=== PATIENT | female | born 1985 | race Two or more races ===

== ENCOUNTER 2017-05-07 06:09 | Day surgery (SDC) | payer BC ==
--- NOTE | 2017-05-04 13:36 | Short Stay Surgery H&P ---
History of Present Illness History of Present Illness Chief Complaint Desires permanent sterilization HPI Rabia Kirk is a 31 year old female admitted on 05/07/17 for desired permanent sterilization. She had her 1st baby at age 26 and since that time has desired sterilization. She has been counseled on the R/B/A to sterilization, including risk of regret, and alternatives such as LARC. Patient desires permanent contraception and was thus counseled on laparoscopic tubal occlusion vs salpingectomy. We discussed the benefits of salpingectomy including decreased risk of ovarian cancer, as well as decreased likelihood of failure. We discussed risks of surgery including risk of bleeding, infection, and damage to surrounding organs. The patient wishes to proceed and has given informed consent. PMH: Denies hx of HTN, asthma, DM, or VTE PSH: No prior surgeries Meds: None Allergies: NKDA OBHx: - x1 5y ago, MedAb in 2017 GYNHx: Denies hx of fibroids or AUB, +hx of cysts (resolved) SocHx: Non-smoker, drinks socially, exercises regularly FamHx: mother with HTN and arthritis, no other notable family hx Review of Systems Cardiovascular: Reports: no symptoms Respiratory: Reports: no symptoms Skeletal: Reports: no symptoms Gastrointestinal: Reports: no symptoms Genitourinary: Reports: no symptoms Neurologic: Reports: no symptoms Endocrine: Reports: no symptoms Hematologic: Reports: no symptoms Physical Exam Vital Signs P 100/60, HR 70, RR 20 Labs See scanned reports XRay Ultrasound performed in the office on 05/04 was within normal limits EKG N/A Skin: normal HENT: normal Heart: normal - RRR Lungs: normal - No increased work of breathing, respirations even and unlabored Abdomen: normal - Soft, NTND Extremities: normal - warm, well-perfused Genitourinary: normal Plan Plan of Care 31 year old desiring permanent sterilization. Plan is for laparoscopic bilateral salpingectomy. US performed in the office shows no abnormalities. Patient counseled on expectation post-op and will see me 1 week after surgery for post-op visit. Final Diagnosis: Attestation Are the patient's medical conditions optimized for surgery? Attestation Response: yes Alessia Villegas M.D. May 04, 2017 13:36
[2017-05-07] VITALS (11 sets, daily range): BP systolic 107–129; BP diastolic 67–78
[~2017-05-07] VITALS: Ht 165.1 cm; Wt 71.7 kg
[2017-05-07] MEDS ORDERED: NKM (06:46)
[2017-05-07] MEDS ORDERED: cefOXitin Sod 2 GM in D5W 110 ML IVPB ONE (07:00)
[2017-05-07] MEDS ORDERED: Ropivacaine 5mg/ml Vial 30ml INJ ONE (07:22)
[2017-05-07] MEDS ORDERED: LR 1000ml 1,000 ML IVLG SCH (07:28)
--- NOTE | 2017-05-07 07:28 | Anethesia Preoperative Eval ---
Anesthesia Pre-op PMH/ROS General Date of Evaluation: May 07, 2017 Anesthesiologist: Dominick ASA Score: ASA 1 Mallampati Score Class I : Soft palate, uvula, fauces, pillars visible Class II: Soft palate, uvula, fauces visible Class III: Soft palate, base of uvula visible Class IV: Only hard plate visible Mallampati Classification: Class I Surgeon: Nelly Diagnosis: Desire sterilization Surgical Procedure: Laparoscopic BSO Anesthesia History: none Family History: no anesthesia problems Allergies: Coded Allergies: No Known Allergies (Unverified , 05/06/17) Medications: see eMAR Past Medical History Cardiovascular: Denies: HTN, CAD, NM, valve dz, arrhythmia, other Pulmonary: Denies: asthma, COPD, MIKE, other Gastrointestinal/Genitourinary: Denies: GERD, CRI, ESRD, other Neurologic/Psychiatric: Denies: dementia, CVA, depression/anxiety, TIA, other Endocrine: Denies: DM, hypothyroidism, steroids, other HEENT: Denies: cataract (L), cataract (R), glaucoma, [place] (L), [place] (R), other Hematology/Immune: Denies: anemia, DVT, bleeding disorder, other Musculoskeletal/Integumentary: Denies: OA, RA, DJD, DDD, edema, other PSxH Narrative: Denies Anesthesia Pre-op Phys. Exam Physician Exam Last Vital Signs Date Time Temp Pulse Resp B/P (MAP) Pulse Ox O2 Delivery O2 Flow Rate FiO2 05/07/17 07:04 97.7 76 20 107/67 99 Room Air Constitutional: NAD Cardiovascular: RRR Respiratory: CTA Airway Exam Mallampati Score: Class I MO: full ROM: full Teeth: intact Anesthesia Pre-op A/P Labs see chart Urine Test Test 05/07/17 06:15 Urine HCG, Qualitative Negative Studies Pre-op Studies: EKG - sr Risk Assessment & Plan Assessment: ASA I Plan: GA Status Change Before Surgery: No Pre-Antibiotics Drug: Cefoxitin 2g Given Within 1 Hr of Incision: Yes Time Given: 08:00 BERTHA LOUIS M.D. May 07, 2017 07:28
[2017-05-07] MEDS ORDERED: Midazolam 2mg/2ml Inj ONE (07:30)
[2017-05-07] MEDS ORDERED: LR 1000ml ONE (07:30)
[2017-05-07] MEDS ORDERED: Dexamethasone 4mg/ml vial ONE (07:30)
[2017-05-07] MEDS ORDERED: Hydromorphone 0.5mg/0.5ml inj IVP PRN (07:30)
[2017-05-07] MEDS ORDERED: Ketorolac 30mg Inj IV PRN (07:30)
[2017-05-07] MEDS ORDERED: Sterile Water Irrig 1000ml IRRIG ONE (07:30)
[2017-05-07] MEDS ORDERED: fentaNYL 100 mcg/2 mL IV PRN (07:30)
[2017-05-07] MEDS ORDERED: Metoclopramide 10mg/2ml Inj ONE (07:30)
[2017-05-07] MEDS ORDERED: Midazolam 2mg/2ml Inj IVP PRN (07:30)
[2017-05-07] MEDS ORDERED: LORazepam Inj 2mg/ml 1ml IV PRN (07:30)
[2017-05-07] MEDS ORDERED: Nimbex 2mg/ml Inj 10ML IVP ONE (07:30)
[2017-05-07] MEDS ORDERED: DiphenhydrAMINE 50mg/ml Inj IVP PRN (07:30)
[2017-05-07] MEDS ORDERED: Lidocaine 1% MPF 10mg/ml 5ml ONE (07:30)
[2017-05-07] MEDS ORDERED: NS Irrig 1000ml ONE (07:30)
[2017-05-07] MEDS ORDERED: fentaNYL 100 mcg/2 mL IV ONE (07:30)
[2017-05-07] MEDS ORDERED: Metoclopramide 10mg/2ml Inj IVP PRN (07:30)
[2017-05-07] MEDS ORDERED: Ketorolac 30mg Inj ONE (07:30)
[2017-05-07] MEDS ORDERED: Propofol 200mg/20ml IV ONE (07:30)
[2017-05-07] MEDS ORDERED: cefOXitin 2gm Inj ONE (07:31)
--- NOTE | 2017-05-07 07:31 | Pre-Procedure Note/Attestation ---
Pre-Procedure Note/Attestation Complete Prior to Procedure Planned Procedure: bilateral Procedure Narrative: Laparoscopic bilateral salpingectomy Indications for Procedure Pre-Operative Diagnosis: Desires permanent sterilization Attestation I attest that I discussed the nature of the procedure; its benefits; risks and complications; and alternatives (and the risks and benefits of such alternatives ), prior to the procedure, with the patient (or the patient's legal petroleum products sales representative). I attest that, if there was a reasonable possibility of needing a blood transfusion, the patient (or the patient's legal petroleum products sales representative) was given the [facility] standardized written summary, pursuant to the [place] Blood Safety Act ([place] Health and Safety Code # 1645, as amended). I attest that I re-evaluated the patient just prior to the surgery and that there has been no change in the patient's H&P, except as documented below: Alessia Her M.D. May 07, 2017 07:31
--- NOTE | 2017-05-07 09:01 | Immediate Post-Op Evaluation ---
Immediate Post-Op Evalulation Immediate Post-Op Evalulation Procedure: Lap BTL Date of Evaluation: May 07, 2017 Time of Evaluation: 09:03 IV Fluids: 1.1L Blood Products: 0 Estimated Blood Loss: 15 Urinary Output: 200 Blood Pressure Systolic: 116 Blood Pressure Diastolic: 72 Pulse Rate: 79 Respiratory Rate: 16 O2 Sat by Pulse Oximetry: 99 Temperature (Fahrenheit): 97.6 Pain Score (1-10): 0 Nausea: No Vomiting: No Complications 0 Patient Status: awake, reacts, patent, none Hydration Status: adequate Drug: Cefoxitin 2g Given Within 1 Hr of Incision: Yes Time Given: 08:00 BERTHA LOUIS M.D. May 07, 2017 09:01
--- NOTE | 2017-05-07 09:02 | 48 Hour Post Anesthesia Eval ---
Post Anesthesia Evaluation Procedure: Lap BTL Date of Evaluation: May 07, 2017 Airway: patent Nausea: No Vomiting: No Pain Intensity: 0 Hydration Status: adequate Cardiopulmonary Status: at baseline Mental Status/LOC: patient returned to baseline Post-Anesthesia Complications: 0 Follow-up care needed: ready to discharge BERTHA LOUIS M.D. May 07, 2017 09:02
--- NOTE | 2017-05-07 09:02 | Brief Operative Note ---
Immediate Post Operative Note Operative Note Pre-op Diagnosis: Desires permanent sterilization Procedure: Bilateral salpingectomy, adhesiolysis Post-op Diagnosis: Desired permanent sterilization Post-op Diagnosis: same as pre-op Findings: consistent w/pre-op dx studies Surgeon: Alessia Villegas MD Yard Truck Driver: Jannette Barbosa MD (Amaya) Anesthesiologist: Naheed Smith MD Anesthesia: general Specimen: yes - Left fallopian tube and Right fallopian tube Complications: none Condition: stable Fluids: 1100cc LR Estimated Blood Loss: minimal - 15cc Drains: none Packing: None Implant(s) used?: No Alessia Villegas M.D. May 07, 2017 09:02
--- NOTE | 2017-05-07 09:05 | Operative Note - PDOC ---
Operative Note Operative Note Date of Operation/Procedure: May 07, 2017 Chief Complaint: Desires permanent sterilization Pre-op Diagnosis: Desires permanent sterilization Procedure: Bilateral salpingectomy, adhesiolysis Post-op Diagnosis: Desired permanent sterilization Post-op Diagnosis: same as pre-op Operative Findings: consistent w/pre-op dx studies Surgeon: Alessia Villegas MD Manager Pet: Jannette Barbosa MD (Amaya) Anesthesiologist: Naheed Smith MD Anesthesia: general Specimen: yes - Left fallopian tube and Right fallopian tube Complications: none Condition: stable Fluids: 1100cc LR Estimated Blood Loss: minimal - 15cc Drains: none Packing: None Implant(s) used?: No Indications for Procedure Patient is a 31y/o who presented to my office for consultation regarding permanent sterilization. She has desired sterilization since the of her child 5 years ago, and wished to proceed. She was counseled on her options and the decision was made to proceed with laparoscopic bilateral salpingectomy. Description of Procedure The risks, benefits, and alternatives of the procedure (including but not limited to bleeding, infection, damage to surrounding organs) were discussed with the patient and informed consent was obtained. The patient was taken to the operating room where general anesthesia was obtained without difficulty. Her legs were placed in dorsal lithotomy position in Dean stirrups, taking care not to hyperflex or hyperextend the hips or knees. Her arms were placed at her side in position with padding. She was prepped and draped in the usual sterile fashion and a doty catheter was placed in the urinary bladder. A time out was performed to verify patient and procedure. Attention was turned to the pelvis. A speculum was placed and the anterior lip of the cervix was grasped with a single-toothed tenaculum. A uterine manipulator was placed, secured, and the tenaculum and speculum were removed. Attention was then turned to the abdomen. An vertical incision was made in the umbilicus after infiltration of local anesthetic. A Veress needle was used to insufflate the abdomen with carbon dioxide. A 5mm trochar was placed in the umbilicus. The laparoscope was introduced and the pelvis and abdomen were surveyed and she was placed in Trendelenberg position. Additional trochars were placed under direct visualization as follows: two 5mm ports in the bilateral lower quadrants. The tubes and ovaries were clearly visualized and appeared overall normal, with the exception of adhesions between the tube and the ovary bilaterally. The adhesions were taken down using bipolar cautery and cut. Once the tubes were freed from the ovaries, we were able to proceed with the salpingectomy. The left tube was grasped at the fimbriated end and was dissected away from the ovary and uterus at the level of the mesosalpinx using bipolar cautery and cut. Excellent hemostasis was noted. The tube was removed via the RLQ port. The right tube was removed in a similar fashion. Excellent hemostasis was observed. The laparoscopic instruments were removed, and the bilateral lower quadrant ports were removed under direct visualization. The carbon dioxide gas was allowed to escape and the umbilical port was removed with laparoscope in situ. The skin was closed with Mastisol steri-strips at the RLQ and umbilical port sites, and with 4-0 Moncryl at the LLQ port site followed by Mastisol and steri- strips. Bandaids and paper tape were used to cover the steri-strips. The patient was extubated in the operating room and transferred to the recovery room in stable condition. Dr. Barbosa, amaya, was present for the entire procedure. Alessia Villegas M.D. May 07, 2017 09:05
== END 2017-05-07 11:00 | disposition home or self-care (01) ==
LOC: SUR 06:09
DX: Z30.2 Encounter for sterilization (principal); N73.6 Female pelvic peritoneal adhesions (postinfective); Z82.61 Family history of arthritis; Z82.49 Family history of ischemic heart disease and other diseases of the circulatory system
CPT/HCPCS: 58661; 81025; J0694; J1100; J1170; J1885; J2250; J2405; J2704; J2765; J2795; J3010; J7120; 94003; 94150

== ENCOUNTER 2018-11-26 20:02 | Emergency (ER) | payer SELFPAY ==
[~2018-11-26] VITALS: Ht 162.6 cm; Wt 63.5 kg
[~2018-11-26 20:02] MED LIST: NKM
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
[2018-11-26] MEDS ORDERED: Acetaminophen 500mg (ES) tab ORAL ONE (21:00)
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
[2018-11-26] MEDS ORDERED: IBUPROFEN600 MG ORAL (21:59)
[2018-11-26] MEDS ORDERED: ROBAXIN500 MG PO (21:59)
[2018-11-26] MEDS ORDERED: TRAMADOL HCL50 MG ORAL (21:59)
[2018-11-26 22:15] VITALS: BP 122/69
[2018-11-26 22:32] VITALS: BP 115/68
== END 2018-11-26 22:20 | disposition home or self-care (01) ==
LOC: EMR 21:00
DX: S13.4XXA Sprain of ligaments of cervical spine, initial encounter (principal); S30.1XXA Contusion of abdominal wall, initial encounter; S60.212A Contusion of left wrist, initial encounter; S90.32XA Contusion of left foot, initial encounter; S09.90XA Unspecified injury of head, initial encounter; V43.52XA Car driver injured in collision with other type car in traffic accident, initial encounter; Y92.410 Unspecified street and highway as the place of occurrence of the external cause
CPT/HCPCS: 99283